=== PATIENT | female | born 1960 | race African-American/Black ===

== ENCOUNTER 2016-06-10 15:10 | Emergency (ER) | payer MEDICAID ==
[2016-06-10] MEDS ORDERED: OXYCODONE/APAP 5/325 TAB ONE (16:40)
[2016-06-10] MEDS ORDERED: LEVOFLOXACIN 750 MG TAB PO ONE (16:45)
== END 2016-06-10 17:38 | disposition home or self-care (01) ==
LOC: ER 15:10